=== PATIENT | female | born 1960 | race Caucasian/White ===

== ENCOUNTER → 2016-11-20 | Outpatient (CLI) | payer OTHER ==
--- NOTE | ~2016-11-20 | US5 ---
[facility] A Service [facility] RADIOLOGY TEXT RESULTS PATIENT: ALPESH MCCORMICK LOCATION: [place] : 64 UNIT #: [id number] AGE: [address]: PRIYANK PAYNE MD SEX: F ORDER DR: [id number] [place] [id number] [facility]. [place], [place] [address] [id number] O MR#: [id number] Acc #: [id number] NAME: ALPESH MCCORMICK : 1960 SEX: F STUDY DATE/TIME: 11/20/2016 10:11 UNIT: CGUS ROOM: STUDY DESCRIPTION: US Abdominal Complete Attending Physician: Priyank Payne M.D. Referring Physician: Priyank Payne M.D. Ordering Physician: Priyank Payne M.D. Primary Care Physician: Priyank Payen M.D. MEDICAL IMAGING REPORT This report is preliminary unless electronic signature is present EXAM Complete abdominal ultrasound. HISTORY 56-year-old female with elevated liver function enzymes and nausea for 2 weeks. TECHNIQUE Joaquin-scale imaging of the abdomen was performed. COMPARISON STUDIES No comparisons. FINDINGS The abdominal aorta is nonaneurysmal. The intrahepatic IVC is unremarkable. Visualized portions of the pancreas are within normal limits. The common duct measures 2 mm. The right kidney measures 8.8 cm in length. The left kidney measures 9.8 cm in length. There is no hydronephrosis. The liver is within normal limits. The gallbladder is within normal limits. The spleen is within normal limits. IMPRESSION Negative abdominal ultrasound. Dictated by... Leif Mackenzie M.D. THIS IS AN ELECTRONICALLY VERIFIED REPORT Leif Mackenzie M.D. at 11/21/2016 9:03 AM ARS/tmw [facility] A Service [facility] RADIOLOGY TEXT RESULTS PATIENT: ALPESH MCCORMICK LOCATION: [facility] : 64 UNIT #: [id number] AGE: [address]: PRIYANK PAYNE MD SEX: F ORDER DR: TD: 11/20/2016 12:25 JOB #: [id number] MEDICAL IMAGING REPORT Page 1 of 1 COPY
== END | disposition home or self-care (01) ==
LOC: CGUS 09:52
DX: R79.89 Other specified abnormal findings of blood chemistry (principal)
CPT/HCPCS: 76700